=== PATIENT | male | born 1995 | race Caucasian/White ===

== ENCOUNTER 2017-11-20 21:31 | Emergency (ER) | payer BC, OTHER ==
[2017-11-20 21:59] VITALS: BP 134/66
--- NOTE | 2017-11-20 22:02 | UC ---
Shoulder Pain HPI - HPI Summary HPI Summary: 22 yo male with left shoulder pain which started while doing presses at gym now pain worse with some swelling hurts to abduct - History of Current Complaint Chief Complaint: UCUpperExtremity Stated Complaint: LEFT SHOULDER INJ Time Seen by Provider: 11/20/17 22:01 Hx Obtained From: Patient Onset/Duration: Sudden Onset Timing: Constant Severity Initially: Mild Severity Currently: Mild Location Of Pain: Is Discrete @ Pain Intensity: 2 Pain Scale Used: 0-10 Numeric Character: Dull, Aching Aggravating Factor(s): Movement Alleviating Factor(s): Rest Associated Signs And Symptoms: Positive: Swelling Torso: 1 - tender/swollen - Allergies/Home Medications Allergies/Adverse Reactions: Allergies Allergy/AdvReac Type Severity Reaction Status Date / Time No Known Allergies Allergy Verified 11/20/17 21:59 PMH/Surg Hx/FS Hx/Imm Hx Previously Healthy: Yes - Surgical History Surgical History: None - Family History Known Family History: Positive: Hypertension - Social History Alcohol Use: None Substance Use Type: None Smoking Status (MU): Never Smoked Tobacco Review of Systems Constitutional: Negative Skin: Negative Eyes: Negative ENT: Negative Respiratory: Negative Cardiovascular: Negative Gastrointestinal: Negative Genitourinary: Negative Motor: Negative Neurovascular: Negative Musculoskeletal: Arthralgia, Myalgia Neurological: Negative Psychological: Negative Is Patient Immunocompromised?: No All Other Systems Reviewed And Are Negative: Yes Physical Exam Triage Information Reviewed: Yes Appearance: Well-Appearing, No Pain Distress, Well-Nourished Vital Signs: Initial Vital Signs Temp 98.6 F 11/20/17 21:50 Pulse 74 11/20/17 21:50 Resp 16 11/20/17 21:50 BP 134/66 11/20/17 21:50 Pulse Ox 100 11/20/17 21:50 Vital Signs Reviewed: Yes Eyes: Positive: Conjunctiva Clear ENT: Negative: Hearing grossly normal, Nasal congestion, Nasal drainage, Trismus , Muffled voice, Sinus tenderness, Uvula midline Neck: Positive: Supple, Nontender Respiratory: Positive: Lungs clear, Normal breath sounds, No respiratory distress, No accessory muscle use Cardiovascular: Positive: RRR, No Murmur Musculoskeletal: Positive: ROM Limited @, Edema @ - see image Neurological: Positive: Alert Psychological Exam: Normal Skin Exam: Normal Diagnostics - Radiology No standard instances Xray Interpretation: No Acute Changes Radiology Interpretation Completed By: ED Physician Shoulder Course/Dx - Differential Dx/Diagnosis Provider Diagnoses: left shoulder ac joint strain Discharge - Discharge Plan Condition: Stable Disposition: HOME Patient Education Materials: Shoulder Sprain (ED) Referrals: Arturo Rincon MD [Medical Doctor] - 1 Week (if not better) Additional Instructions: rest ice advil or aleve
--- NOTE | 2017-11-21 07:50 | RAD ---
HISTORY: Left shoulder injury COMPARISONS: None VIEWS: 4, Frontal internal rotation, external rotation, outlet, and axillary views of the left shoulder FINDINGS: BONE DENSITY: Normal. BONES: There is no displaced fracture. JOINTS: There is no arthropathy. ALIGNMENT: There is no dislocation. SOFT TISSUES: Unremarkable. OTHER FINDINGS: None. IMPRESSION: NO ACUTE OSSEOUS INJURY. IF SYMPTOMS PERSIST, RECOMMEND REPEAT IMAGING.
== END 2017-11-20 22:44 | disposition home or self-care (01) ==
LOC: UCCORT 21:31
DX: S46.812A Strain of other muscles, fascia and tendons at shoulder and upper arm level, left arm, initial encounter (principal); X50.3XXA Overexertion from repetitive movements, initial encounter; Y93.B1 Activity, exercise machines primarily for muscle strengthening; Y92.9 Unspecified place or not applicable
CPT/HCPCS: 99201; G0463

== ENCOUNTER 2018-03-16 23:35 | Emergency (ER) | payer BC ==
[2018-03-17] MEDS ORDERED: Albuterol/Ipratropium NEB.SOL* Albuterol 2.5 MG/Ipratropium 0.5 MG 3 ML INH ONE (00:59)
[2018-03-17] MEDS ORDERED: Ibuprofen TAB* 800 MG PO ONE (00:59)
--- NOTE | 2018-03-17 01:37 | ED ---
Kaylyn Dubois Rebecca, scribed for Nick Park MD on 03/17/18 at 0055 . Complex/Multi-Sys Presentation - HPI Summary HPI Summary: Pt is a 22 y/o M who presents to ED c/o cough with myalgias since yesterday morning. On triage, pt reported that he was having no pain. Sx aggravated and alleviated by nothing. Additionally notes XIE and intermittent subjective fever. No PMHx asthma. SHx no smoking. - History Of Current Complaint Chief Complaint: EDGeneral Time Seen by Provider: 03/17/18 00:42 Hx Obtained From: Patient Onset/Duration: Lasting Days - Since yesterday morning, Still Present Severity Currently: None Location: Negative Aggravating Factor(s): Nothing Alleviating Factor(s): Nothing Associated Signs And Symptoms: Positive: Cough, Fever, Other - Myalgias - Allergies/Home Medications Allergies/Adverse Reactions: Allergies Allergy/AdvReac Type Severity Reaction Status Date / Time No Known Allergies Allergy Verified 11/20/17 21:59 PMH/Surg Hx/FS Hx/Imm Hx Endocrine/Hematology History: Denies: Hx Diabetes Respiratory History: Denies: Hx Asthma Infectious Disease History: No Infectious Disease History: Denies: Traveled Outside the [place] in Last 30 Days - Family History Known Family History: Positive: Hypertension - Social History Alcohol Use: None Substance Use Type: Reports: None Smoking Status (MU): Never Smoked Tobacco Review of Systems Positive: Fever Positive: Cough Positive: Myalgia Positive: Headache All Other Systems Reviewed And Are Negative: Yes Physical Exam - Summary Physical Exam Summary: VITAL SIGNS: Reviewed. GENERAL: ~Patient is a well-developed and nourished male who is lying comfortable in the stretcher. Patient is not in any acute respiratory distress. HEAD AND FACE: No signs of trauma. No ecchymosis, hematomas or skull depressions. No sinus tenderness. EYES: PERRLA, EOMI x 2, No injected conjunctiva, no nystagmus. EARS: Hearing grossly intact. Ear canals and tympanic membranes are within normal limits. MOUTH: Oropharynx within normal limits. NECK: Supple, trachea is midline, no adenopathy, no JVD, no carotid bruit, no c- spine tenderness, neck with full ROM. CHEST: Symmetric, no tenderness at palpation LUNGS: Clear to auscultation bilaterally. No wheezing or crackles. CVS: Regular rate and rhythm, S1 and S2 present, no murmurs or gallops appreciated. ABDOMEN: Soft, non-tender. No signs of distention. No rebound no guarding, and no masses palpated. Bowel sounds are normal. EXTREMITIES: FROM in all major joints, no edema, no cyanosis or clubbing. NEURO: Alert and oriented x 3. No acute neurological deficits. Speech is normal and follows commands. SKIN: Dry and warm Triage Information Reviewed: Yes Vital Signs On Initial Exam: Initial Vitals Temp Pulse Resp BP Pulse Ox 99.5 F 74 20 127/66 100 03/16/18 23:47 03/16/18 23:47 03/16/18 23:47 03/16/18 23:47 03/16/18 23:47 Vital Signs Reviewed: Yes Diagnostics - Vital Signs Vital Signs Temp Pulse Resp BP Pulse Ox 03/16/18 23:47 99.5 F 74 20 127/66 100 - Laboratory Lab Statement: Any lab studies that have been ordered have been reviewed, and results considered in the medical decision making process. - Radiology CXR Xray Interpretation: No Acute Changes - No acute process. Pending official report. Radiology Interpretation Completed By: ED Physician Re-Evaluation - Re-Evaluation First Eval Re-Evaluation Time: 01:32 Change: Improved Comment: Discussed results. Pt feels better and wants to go home. Complex Multi-Symp Course/Dx Assessment/Plan: Pt is a 22 y/o M who presents to ED c/o cough with myalgias, XIE , and intermittent subjective fever since yesterday morning. On triage, pt reported that he was having no pain. Sx aggravated and alleviated by nothing.No PMHx asthma. SHx no smoking. CXR reveals no acute findings. In the ED course, pt received ventolin and duoneb Tx and motrin which improved sx. On re- evaluation, the pt feels better and would like to go home. Pt will be D/C to home with Dx of viral syndrome with Rx for motrin. He understands and agrees. - Diagnoses Provider Diagnoses: Viral syndrome Discharge - Sign-Out/Discharge Documenting (check all that apply): Discharge/Admit/Transfer - Discharge - Discharge Plan Condition: Stable Disposition: HOME Prescriptions: Ibuprofen TAB* [Motrin TAB* 800 MG] 800 mg PO Q6H PRN #30 tab PRN Reason: Pain Or Temperature Patient Education Materials: Viral Syndrome (ED) Referrals: No Primary Care Phys,NOPCP [Primary Care Provider] - [facility] [place] [place] [facility] [Outside] - 3 Days Additional Instructions: RETURN TO ED FOR ANY NEW OR WORSENING SYMPTOMS. The documentation as recorded by the Kaylyn ureña Rebecca accurately reflects the service I personally performed and the decisions made by , Nick Park MD.
[2018-03-17] MEDS ORDERED: Albuterol HFA INHALER* 8 gm MDI INH ONE (01:46)
[2018-03-17] MEDS ORDERED: Albuterol HFA INHALER* 8 gm MDI INH SCH (02:00)
[2018-03-17 02:01] VITALS: BP 119/69
--- NOTE | 2018-03-17 08:10 | RAD ---
INDICATION: Cough COMPARISON: August 08, 2010 TECHNIQUE: PA and lateral dual-energy views were obtained. FINDINGS: Bones/Soft Tissues: There are no acute bony findings. Cardiomediastinal: The cardiomediastinal silhouette is normal. Lungs: There are no infiltrates. Pleura: There are no pleural effusions. Other: None IMPRESSION: NORMAL CHEST.
== END 2018-03-17 02:00 | disposition home or self-care (01) ==
LOC: ED 23:35
DX: B34.9 Viral infection, unspecified (principal)
CPT/HCPCS: 71045; 99282; A9270-GY

== ENCOUNTER 2018-03-26 22:00 | Emergency (ER) | payer BC ==
[2018-03-26 23:32] LABS: ABS Basophils 0 10^3/ul (0-0.2); ABS Eosinophils 0.1 10^3/ul (0-0.6); ABS Monocytes 0.7 10^3/ul (0-0.8); ABS Neutrophils 10.7 10^3/ul (1.5-7.7); ABS Nucleated RBC 0 10^3/ul; Eosinophil % 0.9 % (0-6); Hematocrit 44 % (42-52); Hemoglobin 15.5 g/dl (14.0-18.0); Lymphocyte % 7.8 % (25-47); Mean Corpuscular HGB Conc 35 g/dl (31-36); Mean Corpuscular Hemoglobin 32 pg (27-31); Mean Corpuscular Volume 92 fL (80-94); Nucleated Red Blood Cells % 0.1; Platelet Count 207 10^3/ul (150-450); Red Blood Count 4.82 10^6/ul (4.0-5.4); Red Cell Distribution Width 12 % (10.5-15); White Blood Count 12.5 10^3/ul (3.5-10.8)
[2018-03-26 23:49] LABS: EGFR Non-African American 84.9 (>60)
[2018-03-27] MEDS ORDERED: Azithromycin TAB* 250 MG PO ONE (00:08)
--- NOTE | 2018-03-27 00:09 | ED ---
HPI Febrile Illness - HPI Summary HPI Summary: Complains of fever up to 100.4, chills, weakness, productive cough, persistent nausea with vomiting 1 over the past 2 weeks. Symptoms seem to be improving over the past couple days with sudden onset again today. Denies nasal discharge , ear pain, sore throat, XIE, CP, SOB, abdominal pain, diarrhea, change in urine. - History of Current Complaint Chief Complaint: EDWeakness Time Seen by Provider: 03/26/18 22:48 Hx Obtained From: Patient, Family/Major Case Detective Onset/Duration: Started Weeks Ago Timing: Intermittent Initial Severity: Mild Current Severity: Moderate Pain Intensity: 6 Pain Scale Used: 0-10 Numeric Associated Signs and Symptoms: Cough, Nausea, Vomiting, Weakness - Allergy/Home Medications Allergies/Adverse Reactions: Allergies Allergy/AdvReac Type Severity Reaction Status Date / Time No Known Allergies Allergy Verified 03/26/18 22:06 PMH/Surg Hx/FS Hx/Imm Hx Endocrine/Hematology History: Denies: Hx Diabetes Respiratory History: Denies: Hx Asthma, Hx Chronic Obstructive Pulmonary Disease (COPD) Infectious Disease History: No Infectious Disease History: Denies: Traveled Outside the [place] in Last 30 Days - Family History Known Family History: Positive: Hypertension - Social History Alcohol Use: None Substance Use Type: Reports: None Smoking Status (MU): Never Smoked Tobacco Review of Systems Positive: Fever Eyes: Negative ENT: Negative Cardiovascular: Negative Positive: Cough Positive: Vomiting, Nausea Genitourinary: Negative Musculoskeletal: Negative Skin: Negative Positive: Weakness Psychological: Normal All Other Systems Reviewed And Are Negative: Yes Physical Exam Triage Information Reviewed: Yes Vital Signs On Initial Exam: Initial Vitals Temp Pulse Resp BP Pulse Ox 99.5 F 91 16 121/78 98 03/26/18 22:02 03/26/18 22:02 03/26/18 22:02 03/26/18 22:02 03/26/18 22:02 Vital Signs Reviewed: Yes Appearance: Positive: Well-Appearing Skin: Positive: Warm Head/Face: Positive: Normal Head/Face Inspection Eyes: Positive: Normal ENT: Positive: Normal ENT inspection Neck: Positive: Supple Respiratory/Lung Sounds: Positive: Clear to Auscultation Cardiovascular: Positive: Normal Abdomen Description: Positive: Nontender Musculoskeletal: Positive: Normal Neurological: Positive: Normal Psychiatric: Positive: Normal AVPU Assessment: Alert - Geo Coma Scale Best Eye Response: 4 - Spontaneous Best Motor Response: 6 - Obeys Commands Best Verbal Response: 5 - Oriented Coma Scale Total: 15 Diagnostics - Vital Signs Vital Signs Temp Pulse Resp BP Pulse Ox 03/26/18 22:02 99.5 F 91 16 121/78 98 - Laboratory Lab Results: Lab Results 03/26/18 03/26/18 03/26/18 Range/Units 23:24 23:24 23:24 WBC 12.5 H (3.5-10.8) 10^3/ul RBC 4.82 (4.0-5.4) 10^6/ul Hgb 15.5 (14.0-18.0) g/dl Hct 44 (42-52) % MCV 92 (80-94) fL MCH 32 H (27-31) pg MCHC 35 (31-36) g/dl RDW 12 (10.5-15) % Plt Count 207 (150-450) 10^3/ul MPV 8.0 (7.4-10.4) um3 Neut % (Auto) 85.1 H (38-83) % Lymph % (Auto) 7.8 L (25-47) % Baker % (Auto) 5.9 (0-7) % Eos % (Auto) 0.9 (0-6) % Baso % (Auto) 0.3 (0-2) % Absolute Neuts (auto) 10.7 H (1.5-7.7) 10^3/ul Absolute Lymphs (auto) 1.0 (1.0-4.8) 10^3/ul Absolute Monos (auto) 0.7 (0-0.8) 10^3/ul Absolute Eos (auto) 0.1 (0-0.6) 10^3/ul Absolute Basos (auto) 0 (0-0.2) 10^3/ul Absolute Nucleated RBC 0 10^3/ul Nucleated RBC % 0.1 Sodium 136 L (139-145) mmol/L Potassium 4.2 (3.5-5.0) mmol/L Chloride 102 (101-111) mmol/L Carbon Dioxide 28 (22-32) mmol/L Anion Gap 6 (2-11) mmol/L BUN 15 (6-24) mg/dL Creatinine 1.07 (0.67-1.17) mg/dL Est GFR ( Amer) 109.2 (>60) Est GFR (Non-Af Amer) 84.9 (>60) BUN/Creatinine Ratio 14.0 (8-20) Glucose 102 H (70-100) mg/dL Lactic Acid 0.5 (0.5-2.0) mmol/L Calcium 9.2 (8.6-10.3) mg/dL Total Bilirubin 1.00 (0.2-1.0) mg/dL AST 22 (13-39) U/L ALT 17 (7-52) U/L Alkaline Phosphatase 82 (34-104) U/L C-Reactive Protein 10.14 H (< 5.00) mg/L Total Protein 7.1 (6.4-8.9) g/dL Albumin 4.3 (3.2-5.2) g/dL Globulin 2.8 (2-4) g/dL Albumin/Globulin Ratio 1.5 (1-3) Monoscreen Negative (Negative) Group A Strep Rapid (Negative) 03/26/18 Range/Units 23:24 WBC (3.5-10.8) 10^3/ul RBC (4.0-5.4) 10^6/ul Hgb (14.0-18.0) g/dl Hct (42-52) % MCV (80-94) fL MCH (27-31) pg MCHC (31-36) g/dl RDW (10.5-15) % Plt Count (150-450) 10^3/ul MPV (7.4-10.4) um3 Neut % (Auto) (38-83) % Lymph % (Auto) (25-47) % Baker % (Auto) (0-7) % Eos % (Auto) (0-6) % Baso % (Auto) (0-2) % Absolute Neuts (auto) (1.5-7.7) 10^3/ul Absolute Lymphs (auto) (1.0-4.8) 10^3/ul Absolute Monos (auto) (0-0.8) 10^3/ul Absolute Eos (auto) (0-0.6) 10^3/ul Absolute Basos (auto) (0-0.2) 10^3/ul Absolute Nucleated RBC 10^3/ul Nucleated RBC % Sodium (139-145) mmol/L Potassium (3.5-5.0) mmol/L Chloride (101-111) mmol/L Carbon Dioxide (22-32) mmol/L Anion Gap (2-11) mmol/L BUN (6-24) mg/dL Creatinine (0.67-1.17) mg/dL Est GFR ( Amer) (>60) Est GFR (Non-Af Amer) (>60) BUN/Creatinine Ratio (8-20) Glucose (70-100) mg/dL Lactic Acid (0.5-2.0) mmol/L Calcium (8.6-10.3) mg/dL Total Bilirubin (0.2-1.0) mg/dL AST (13-39) U/L ALT (7-52) U/L Alkaline Phosphatase (34-104) U/L C-Reactive Protein (< 5.00) mg/L Total Protein (6.4-8.9) g/dL Albumin (3.2-5.2) g/dL Globulin (2-4) g/dL Albumin/Globulin Ratio (1-3) Monoscreen (Negative) Group A Strep Rapid Negative (Negative) Result Diagrams: 03/26/18 23:24 03/26/18 23:24 Lab Statement: Any lab studies that have been ordered have been reviewed, and results considered in the medical decision making process. - Radiology cxr Xray Interpretation: No Acute Changes Radiology Interpretation Completed By: ED Physician Course/Dx - Course Course Of Treatment: Complains of fever up to 100.4, chills, weakness, productive cough, persistent nausea with vomiting 1 over the past 2 weeks. Symptoms seem to be improving over the past couple days with sudden onset again today. Denies nasal discharge, ear pain, sore throat, XIE, CP, SOB, abdominal pain, diarrhea, change in urine. Physical exam unremarkable. Vital signs within normal limits and stable. Likely viral disease, but due to length of symptoms will attempt trial of antibiotics. - Diagnoses Provider Diagnoses: Cough, Fever Discharge - Sign-Out/Discharge Documenting (check all that apply): Discharge/Admit/Transfer - Discharge Plan Condition: Stable Disposition: HOME Patient Education Materials: Fever in Adults (ED) Referrals: No Primary Care Phys,NOPCP [Primary Care Provider] - [facility] [Outside] Additional Instructions: Take antibiotics as directed. Follow-up with primary care. Return to the ED for any new or worsening symptoms - Billing Disposition and Condition Condition: STABLE Disposition: Home
[2018-03-27] MEDS ORDERED: Ondansetron ODT TAB* 4 MG PO ONE (00:19)
[2018-03-27] MEDS ORDERED: Ondansetron ODT TAB* 4 MG ONE (00:21)
[2018-03-27 00:23] VITALS: BP 113/65
--- NOTE | 2018-03-27 07:51 | RAD ---
HISTORY: Fever, cough COMPARISONS: March 17, 2018 VIEWS: 4: Frontal dual-energy and lateral views of the chest. FINDINGS: CARDIOMEDIASTINAL SILHOUETTE: The cardiomediastinal silhouette is normal. KALANI: The kalani are normal. PLEURA: The costophrenic angles are sharp. No pleural abnormalities are noted. LUNG PARENCHYMA: The lungs are clear. ABDOMEN: The upper abdomen is clear. There is no subphrenic gas. BONES AND SOFT TISSUES: No bone or soft tissue abnormalities are noted. OTHER: None. IMPRESSION: NO ACTIVE CARDIOPULMONARY DISEASE.
== END 2018-03-27 00:23 | disposition home or self-care (01) ==
LOC: ED 22:00
DX: R05 Cough (principal); R50.9 Fever, unspecified; R11.2 Nausea with vomiting, unspecified; R53.1 Weakness
CPT/HCPCS: 36415; 71046; 80053; 83605; 85025; 86140; 86308; 87651; 99283; A9270-GY

== ENCOUNTER 2018-10-15 08:25 | Emergency (ER) | payer SELFPAY ==
[2018-10-15 08:37] VITALS: BP 144/62
[2018-10-15] MEDS ORDERED: predniSONE TAB* 10 MG PO ONE (09:07)
--- NOTE | 2018-10-15 09:23 | ED ---
Allergic Reaction/Systemic - HPI Summary HPI Summary: 22 yo W male p/w B/L forearm itchy rash after being exposed to a new chemical at work called Drawsol oil, used as a steel lubricant. [Apparently, per internet search, "Drawsol is a synthetic metal forming lubricant that eliminates corrosion problems associated with chorine-based lubes. Its unique drawing formula minimizes the formation of smoke]. States he has been exposed to it about a week ago but the rash worsened in the last 3-4 days, so itchy that it keeps him up at night - History of Current Complaint Chief Complaint: UCRash Time Seen by Provider: 10/15/18 08:45 Hx Obtained From: Patient Onset/Duration: Started days ago Timing: Constant, Lasting Days Severity Initially: Moderate Severity Currently: Severe Pain Intensity: 10 - Allergies/Home Medications Allergies/Adverse Reactions: Allergies Allergy/AdvReac Type Severity Reaction Status Date / Time No Known Allergies Allergy Verified 10/15/18 08:37 Home Medications: Home Medications Hydrocortisone 0.5% CM(NF) [Hydrocortisone 0.5% CREAM(NF)] 1 applic .SEE ORDER 10/15/18 [History] diphenhydrAMINE HCl [Benadryl Allergy 25 MG CAP] 25 mg PO 10/15/18 [History] PMH/Surg Hx/FS Hx/Imm Hx Previously Healthy: Yes Endocrine/Hematology History: Denies: Hx Diabetes Respiratory History: Denies: Hx Asthma, Hx Chronic Obstructive Pulmonary Disease (COPD) Infectious Disease History: No Infectious Disease History: Denies: Traveled Outside the [place] in Last 30 Days - Family History Known Family History: Positive: Hypertension - Social History Alcohol Use: None Substance Use Type: Reports: None Smoking Status (MU): Never Smoked Tobacco Type: Smokeless Tobacco Review of Systems Constitutional: Negative Eyes: Negative ENT: Negative Cardiovascular: Negative Respiratory: Negative Gastrointestinal: Negative Genitourinary: Negative Musculoskeletal: Negative Positive: Rash Neurological: Negative Psychological: Normal All Other Systems Reviewed And Are Negative: Yes Physical Exam - Summary Physical Exam Summary: Vital Signs Reviewed: Yes Skin: Positive: Warmm raised, pruritic erythematous 6-7mm skin rash on B/L forearms and mildly raised confluent rash on B/L calves Head/Face: Positive: Normal Head/Face Inspection Eyes: Positive: Normal ENT: Positive: Normal ENT inspection Neck: Positive: Supple Respiratory/Lung Sounds: Positive: Clear to Auscultation Cardiovascular: Positive: Normal, RRR, S1, S2 Abdomen Description: Positive: Nontender Musculoskeletal: Positive: Normal Neurological: Positive: Normal Psychiatric: Positive: Normal, Affect/Mood Appropriate Triage Information Reviewed: Yes Vital Signs On Initial Exam: Initial Vitals Temp Pulse Resp BP Pulse Ox 36.2 C 58 18 144/62 98 10/15/18 08:32 10/15/18 08:32 10/15/18 08:32 10/15/18 08:32 10/15/18 08:32 Vital Signs Reviewed: Yes Diagnostics - Vital Signs Vital Signs Temp Pulse Resp BP Pulse Ox 10/15/18 08:32 36.2 C 58 18 144/62 98 - Laboratory Lab Statement: Any lab studies that have been ordered have been reviewed, and results considered in the medical decision making process. Allergic Reaction Course/Dx - Course Assessment/Plan: Allergic rash - exposed to DRAWSOL OIL. Drawsol is a synthetic metal forming lubricant that eliminates corrosion problems associated with chorine-based lubes. PT IS ALLERGIC TO Chlorine which Drawsol contains. Advised to no longer work with that chemical indefinitely- wrote work note advising to assign to another work station indefinitely. Prednisone 10mg po x 1 in UC today and to continue meds- Medrol dose ed tommorrow - Diagnoses Provider Diagnoses: Allergic reaction to chemical substance, Rash Discharge - Sign-Out/Discharge Documenting (check all that apply): Patient Departure All imaging exams completed and their final reports reviewed: Yes - Discharge Plan Condition: Stable Disposition: HOME Prescriptions: Betamethasone Aleah 0.1% CRM(NF) [Valisone 0.1% CM(NF)] 1 applic TOPICAL BID PRN 7 Days #1 tube PRN Reason: Pruritis methylPREDNISolone [Medrol] 4 mg PO .SEE ED INSTRUCTION 6 Days #1 [email or web address] Patient Education Materials: Contact Dermatitis (ED), Acute Rash (ED) Forms: *Work Release - Billing Disposition and Condition Condition: STABLE Disposition: Home
== END 2018-10-15 09:23 | disposition home or self-care (01) ==
LOC: UCEAST 08:25
DX: T78.49XA Other allergy, initial encounter (principal); X58.XXXA Exposure to other specified factors, initial encounter; Y92.9 Unspecified place or not applicable
CPT/HCPCS: 99212; G0463; J7512

== ENCOUNTER 2019-05-23 16:50 | Emergency (ER) | payer OTHER ==
[2019-05-23 16:59] VITALS: BP 112/45
[2019-05-23] MEDS ORDERED: Lidocaine 2% PF * 5 ML VIAL INJ ONE (18:02)
--- NOTE | 2019-05-23 18:20 | UC ---
Upper Extremity HPI - HPI Summary HPI Summary: 23 year old male, up to date on tetanus, presents after punching stove top glass , laceration to right 5th finger, + bleeding, controlled. Glass broke, occurred around 5PM. Bleeding cntrolled, no numbness, tingling, + pain - History of Current Complaint Chief Complaint: UCLaceration Stated Complaint: FINGER LACERATION Time Seen by Provider: 05/23/19 17:53 Hx Obtained From: Patient, Family/Foreman Or Supervisor And Operator - mother, girlfriend ?: No Onset/Duration: Sudden Onset Severity Currently: None Pain Intensity: 0 Pain Scale Used: 0-10 Numeric Location Of Pain: Is Discrete @ - right 5th finger Aggravating Factor(s): Movement, Lifting Alleviating Factor(s): Rest Associated Signs And Symptoms: Negative: Negative, Swelling, Redness, Bruising, Fever, Weakness, Numbness/Tingling - Allergies/Home Medications Allergies/Adverse Reactions: Allergies Allergy/AdvReac Type Severity Reaction Status Date / Time No Known Allergies Allergy Verified 10/15/18 08:37 Home Medications: Home Medications Aspirin/Acetaminophen/Caffeine [Excedrin Migraine Geltab] 05/23/19 [History] PMH/Surg Hx/FS Hx/Imm Hx Previously Healthy: Yes - Surgical History Surgical History: None - Family History Known Family History: Positive: Hypertension - Social History Alcohol Use: None Substance Use Type: None Smoking Status (MU): Never Smoked Tobacco Type: Smokeless Tobacco Review of Systems All Other Systems Reviewed And Are Negative: Yes Skin: Positive: Other - laceration 5th finger R Musculoskeletal: Positive: Arthralgia, Decreased ROM, Edema, Myalgia Neurological: Positive: Negative Is Patient Immunocompromised?: No Physical Exam Triage Information Reviewed: Yes Appearance: Well-Appearing, No Pain Distress, Well-Nourished Vital Signs: Initial Vital Signs Temp 99.9 F 05/23/19 16:54 Pulse 73 05/23/19 16:54 Resp 16 05/23/19 16:54 BP 112/45 05/23/19 16:54 Pulse Ox 100 05/23/19 16:54 Vital Signs Reviewed: Yes Eyes: Positive: Conjunctiva Clear ENT: Positive: Hearing grossly normal Skin: Positive: Other - 2cm laceration to PIP 5th finger, RIght hand. Bleeding controlled, SITLT Procedures - Laceration/Wound Repair 2 Location: upper extremity - 5th finger R Description: Irregular Anesthesia: Local, 2.0%, Lido Length, Depth and Shape: avulsion ~ 2cm in length, 4mm depth, 2mm width Betadine Prep?: No - chlorhexadine Irrigated w/ Saline (ccs): 100 Laceration/Wound Explored: clean Closure: Single Layer Debridement: minimal Suture Type: Nylon Number of Sutures: 3 Layer Closure?: Yes Sterile Dressing Applied?: No Upper Extremity Course/Dx - Course Course Of Treatment: Right finger laceration - Keep dressing on for 24 hours, change with xeroform for next change, then with non-stick dressing and coban. - keep area covered until sutures removed - Do not soak area, OK to wash after 24 hours - Return with increased pain, bleeding, decreased movement, drainage or go to ER Return or follow up with primary physician within 7 days for suture removal - Differential Dx/Diagnosis Differential Diagnosis/HQI/PQRI: Strain, Sprain Provider Diagnosis: Laceration of finger Discharge - Sign-Out/Discharge Documenting (check all that apply): Patient Departure All imaging exams completed and their final reports reviewed: Yes - Discharge Plan Condition: Good Disposition: HOME Patient Education Materials: Care For Your Stitches (ED), Finger Laceration (ED ) Referrals: No Primary Care Phys,NOPCP [Primary Care Provider] - [facility] [Outside] Additional Instructions: - Keep dressing on for 24 hours, change with xeroform for next change, then with non-stick dressing and coban. - keep area covered until sutures removed - Do not soak area, OK to wash after 24 hours - Return with increased pain, bleeding, decreased movement, drainage or go to ER Return or follow up with primary physician within 7 days for suture removal - Billing Disposition and Condition Condition: GOOD Disposition: Home
== END 2019-05-23 18:45 | disposition home or self-care (01) ==
LOC: UCEAST 16:50
DX: S61.216A Laceration without foreign body of right little finger without damage to nail, initial encounter (principal); W22.8XXA Striking against or struck by other objects, initial encounter; Y92.010 Kitchen of single-family (private) house as the place of occurrence of the external cause
CPT/HCPCS: 12001; 99211; G0463

== ENCOUNTER 2019-05-30 12:13 | Emergency (ER) | payer OTHER ==
[2019-05-30 12:25] VITALS: BP 109/59
--- NOTE | 2019-05-30 12:28 | UC ---
Skin Complaint HPI - HPI Summary HPI Summary: 23 yo female presents for suture removal right 5th digit. 3 sutures placed on 05/23. Has had no drainage, fevers, pain, or decreased ROM - History of Current Complaint Chief Complaint: UCLaceration Time Seen by Provider: 05/30/19 12:28 Stated Complaint: SUTURE REMOVAL Hx Obtained From: Patient Onset/Duration: Sudden Onset Onset Severity: Mild Current Severity: None Pain Intensity: 0 - Allergy/Home Medications Allergies/Adverse Reactions: Allergies Allergy/AdvReac Type Severity Reaction Status Date / Time chlorine Allergy Hives Uncoded 05/30/19 12:25 PMH/Surg Hx/FS Hx/Imm Hx - Additional Past Medical History Additional PMH: None - Surgical History Surgical History: None - Family History Known Family History: Positive: Hypertension - Social History Lives: With Family Alcohol Use: None Substance Use Type: None Smoking Status (MU): Never Smoked Tobacco Type: Smokeless Tobacco Review of Systems All Other Systems Reviewed And Are Negative: Yes Constitutional: Positive: Negative Skin: Positive: Other - Laceration right 5th digit Respiratory: Positive: Negative Cardiovascular: Positive: Negative Neurovascular: Positive: Negative Musculoskeletal: Positive: Negative Neurological: Positive: Negative Physical Exam - Summary Physical Exam Summary: GENERAL: NAD. WDWN. No pain distress. SKIN: RIGHT 5th digit [address] Well healed. No erythema, edema, drainage. CHEST: No accessory muscle use. Breathing comfortably and in no distress. CV: Pulses intact. Cap refill <2seconds MSK: FROM right 5th digit MCP, PIP, and DIP NEURO: Alert. PSYCH: Age appropriate behavior. Triage Information Reviewed: Yes Vital Signs: Initial Vital Signs Temp 98.8 F 05/30/19 12:23 Pulse 70 05/30/19 12:23 Resp 16 05/30/19 12:23 BP 109/59 05/30/19 12:23 Pulse Ox 100 05/30/19 12:23 Vital Signs Reviewed: Yes Course/Dx - Course Course Of Treatment: 3 sutures removed without difficulty - Diagnoses Provider Diagnosis: Visit for suture removal Discharge - Sign-Out/Discharge Documenting (check all that apply): Patient Departure All imaging exams completed and their final reports reviewed: No Studies - Discharge Plan Condition: Stable Disposition: HOME Patient Education Materials: Stitches Removal (ED) Referrals: No Primary Care Phys,NOPCP [Primary Care Provider] - Additional Instructions: If you develop a fever, shortness of breath, chest pain, new or worsening symptoms - please call your PCP or go to the ED immediately. - Billing Disposition and Condition Condition: STABLE Disposition: Home
== END 2019-05-30 12:34 | disposition home or self-care (01) ==
LOC: UCEAST 12:13
DX: S61.216D Laceration without foreign body of right little finger without damage to nail, subsequent encounter (principal); X58.XXXD Exposure to other specified factors, subsequent encounter

== ENCOUNTER 2019-06-20 16:11 | Emergency (ER) | payer OTHER ==
[2019-06-20 17:06] VITALS: BP 112/66
--- NOTE | 2019-06-20 17:49 | UC ---
Laceration HPI - HPI Summary HPI Summary: 23 yo male s/p banding strap laceration left forearm hours ago at work Td up to date pt right handed - History Of Current Complaint Chief Complaint: UCLaceration Stated Complaint: LEFT ARM LAC Time Seen by Provider: 06/20/19 17:46 Hx Obtained From: Patient Laceration Location: Arm - volar aspect of left fore arm Onset/Duration: Sudden Onset Severity: Mild Pain Intensity: 1 Pain Scale Used: 0-10 Numeric Aggravating Factors: Nothing Full Body (No Head): 1 - lac - Allergies/Home Medications Allergies/Adverse Reactions: Allergies Allergy/AdvReac Type Severity Reaction Status Date / Time chlorine Allergy Hives Uncoded 06/20/19 17:05 Home Medications: Home Medications NK [No Home Medications Reported] 06/20/19 [History Confirmed 06/20/19] PMH/Surg Hx/FS Hx/Imm Hx Previously Healthy: Yes - Surgical History Surgical History: None - Family History Known Family History: Positive: Hypertension, Non-Contributory - Social History Alcohol Use: Rare Substance Use Type: None Smoking Status (MU): Unknown if Ever Smoked Type: Smokeless Tobacco Review of Systems All Other Systems Reviewed And Are Negative: Yes Constitutional: Positive: Negative Skin: Positive: Negative Eyes: Positive: Negative ENT: Positive: Negative Respiratory: Positive: Negative Cardiovascular: Positive: Negative Gastrointestinal: Positive: Negative Genitourinary: Positive: Negative Motor: Positive: Negative Neurovascular: Positive: Negative Musculoskeletal: Positive: Negative Neurological: Positive: Negative Psychological: Positive: Negative Physical Exam Triage Information Reviewed: Yes Appearance: Well-Appearing, No Pain Distress, Well-Nourished Vital Signs: Initial Vital Signs Temp 99.0 F 06/20/19 17:02 Pulse 73 06/20/19 17:02 Resp 18 06/20/19 17:02 BP 112/66 06/20/19 17:02 Pulse Ox 99 06/20/19 17:02 Vital Signs Reviewed: Yes Eyes: Positive: Conjunctiva Clear ENT: Negative: Hearing grossly normal, Nasal congestion, Nasal drainage, Tonsillar exudate, Trismus, Uvula midline Neck: Positive: Supple, Nontender, No Lymphadenopathy Respiratory: Positive: Lungs clear, Normal breath sounds, No respiratory distress Cardiovascular: Positive: RRR, No Murmur Musculoskeletal: Positive: ROM Intact, No Edema Neurological: Positive: Alert Psychological Exam: Normal Skin Exam: Other - lac as noted Procedures - Laceration/Wound Repair 1 Location: Other - left forearm Length, Depth and Shape: 3 cm long, 3 mm wide, 3 mm deep, LINEAR Irrigated w/ Saline (ccs): 250 Laceration/Wound Explored: clean Closure: Multilayer Suture Type: Nylon - 6 5-0, Vicryl - 2 5-0 Number of Sutures: 8 Layer Closure?: Yes Sterile Dressing Applied?: Yes Laceration Course/Dx - Diagnosis Provider Diagnosis: Laceration of left forearm Discharge ED - Sign-Out/Discharge Documenting (check all that apply): Patient Departure All imaging exams completed and their final reports reviewed: No Studies - Discharge Plan Condition: Stable Disposition: HOME Patient Education Materials: Care For Your Stitches (ED) Forms: *Work Release Referrals: No Primary Care Phys,NOPCP [Primary Care Provider] - Additional Instructions: gently clean twice daily with soap and water apply thin film of antibiotic oint dressing return for concerns of infection - Billing Disposition and Condition Condition: STABLE Disposition: Home
[2019-06-20] MEDS ORDERED: Lidocaine 2% w EPI 1:100,000* 20 ML MDV VIAL INJ ONE (17:53)
== END 2019-06-20 18:45 | disposition home or self-care (01) ==
LOC: UCEAST 16:11
DX: S51.812A Laceration without foreign body of left forearm, initial encounter (principal); W26.9XXA Contact with unspecified sharp object(s), initial encounter; Y93.89 Activity, other specified; Y92.89 Other specified places as the place of occurrence of the external cause; Y99.0 Civilian activity done for income or pay
CPT/HCPCS: 12001; 99211; G0463

== ENCOUNTER 2019-06-27 10:18 | Emergency (ER) | payer SELFPAY ==
[2019-06-27 11:06] VITALS: BP 114/64
--- NOTE | 2019-06-27 11:36 | UC ---
HPI Wound/Suture Re-check - HPI Summary HPI Summary: 23 you gentleman presents with family, c/o L forearm redness / irritation last couple days. S/p suture placement 7 days ago (internal and external) s/p laceration sustained at work to L ant forearm. No pdw. Tet utd. Wound hygiene - via soap / water. Has not been covering the wound, minimal to no drainage. - History Of Current Complaint Chief Complaint: UCSkin Stated Complaint: WOUND RECHECK Time Seen by Provider: 06/27/19 11:09 Hx Obtained From: Patient Pain Intensity: 0 - Allergies/Home Medications Allergies/Adverse Reactions: Allergies Allergy/AdvReac Type Severity Reaction Status Date / Time chlorine Allergy Hives Uncoded 06/27/19 11:06 PMH/Surg Hx/FS Hx/Imm Hx Previously Healthy: Yes - Surgical History Surgical History: None - Family History Known Family History: Positive: Hypertension, Non-Contributory - Social History Alcohol Use: Rare Substance Use Type: None Smoking Status (MU): Never Smoked Tobacco Type: Smokeless Tobacco Review of Systems All Other Systems Reviewed And Are Negative: Yes Constitutional: Positive: Negative Skin: Positive: Other - see hpi Eyes: Positive: Negative ENT: Positive: Negative Respiratory: Positive: Negative Cardiovascular: Positive: Negative Gastrointestinal: Positive: Negative Genitourinary: Positive: Negative Motor: Positive: Negative Neurovascular: Positive: Negative Musculoskeletal: Positive: Negative Neurological: Positive: Negative Psychological: Positive: Negative Is Patient Immunocompromised?: No Physical Exam Triage Information Reviewed: Yes Appearance: Well-Appearing, Well-Nourished Vital Signs: Initial Vital Signs Temp 98 F 06/27/19 11:04 Pulse 71 06/27/19 11:04 Resp 18 06/27/19 11:04 BP 114/64 06/27/19 11:04 Pulse Ox 100 06/27/19 11:04 Vital Signs Reviewed: Yes Eye Exam: Normal - grossly normal ENT Exam: Normal - normal Neck exam: Normal - no c/o Respiratory Exam: Normal Cardiovascular Exam: Normal Abdominal Exam: Normal Musculoskeletal Exam: Normal Neurological Exam: Normal - nonfocal Psychological Exam: Normal - conversing easily Skin Exam: Normal - no visible or reported rash L ant forearm with linear lacaration approx 3+ cm, with several SI interrupted sutures in place. There is some redness at the suture sites, mild local edema. Nonfluctuant. Not hot to touch. Course/Dx - Course Course Of Treatment: Reviewed coa / tx plan with pt and family. Wound apparently was quite deep. Will start mupirocin (see avs), if still red tomorrow, will start ceftin. Rx sent for both. Advised to use light breathable cover (ex loose cloth bandaid) d/t pressure / shearing forces. Suspect shearing forces againt clothes is a contributing factor. Reviewed wound care. Suture removal one more week. Questions as posed answered to the best of my ability. - Diagnosis Provider Diagnosis: Visit for wound check Discharge ED - Sign-Out/Discharge Documenting (check all that apply): Patient Departure All imaging exams completed and their final reports reviewed: No Studies - Discharge Plan Condition: Stable Disposition: HOME Prescriptions: ceFUROXime TAB(*) [Ceftin TAB 250 MG(*)] 250 mg PO BID #10 tab Mupirocin 2% OINT* [Bactroban 2 % Oint*] 1 applic TOPICAL BID #1 tube Patient Education Materials: Wound Infection (ED) Referrals: No Primary Care Phys,NOPCP [Primary Care Provider] - Additional Instructions: Mupirocin ointment THIN layer 2x / day for 7 days. Be sure to lightly cover the wound (not air tight), cloth bandaid best. Avoid astringents (switch to white unscented soap, avoid repeated rubbing alcohol hydrogen peroxide, etc) Suture removal - one week. Seek medical attention for worse or new problems in the meantime. - Billing Disposition and Condition Condition: STABLE Disposition: Home
== END 2019-06-27 11:30 | disposition home or self-care (01) ==
LOC: UCEAST 10:18
DX: S51.812D Laceration without foreign body of left forearm, subsequent encounter (principal); W26.9XXD Contact with unspecified sharp object(s), subsequent encounter; Z91.048 Other nonmedicinal substance allergy status
CPT/HCPCS: 99212; G0463

== ENCOUNTER 2019-07-05 16:43 | Emergency (ER) | payer OTHER ==
[2019-07-05 16:52] VITALS: BP 131/71
--- NOTE | 2019-07-05 17:09 | UC ---
HPI Wound/Suture Re-check - HPI Summary HPI Summary: L forearm has small lac and 6 sutures placed on 06/20 w/ 2 dissolvable sutures deep. Had slight infxn and was rx'd antibx po and topical. Here to have them removed. - History Of Current Complaint Chief Complaint: UCSkin Stated Complaint: STITCHES REMOVAL Time Seen by Provider: 07/05/19 16:55 Hx Obtained From: Patient Pain Intensity: 0 Pain Scale Used: 0-10 Numeric - Allergies/Home Medications Allergies/Adverse Reactions: Allergies Allergy/AdvReac Type Severity Reaction Status Date / Time chlorine Allergy Hives Uncoded 07/05/19 16:53 Home Medications: Home Medications NK [No Home Medications Reported] 07/05/19 [History Confirmed 07/05/19] PMH/Surg Hx/FS Hx/Imm Hx Previously Healthy: Yes - Surgical History Surgical History: None - Family History Known Family History: Positive: Hypertension, Non-Contributory - Social History Alcohol Use: Rare Substance Use Type: None Smoking Status (MU): Never Smoked Tobacco Type: Smokeless Tobacco Review of Systems All Other Systems Reviewed And Are Negative: Yes Constitutional: Negative: Fever Skin: Negative: Other Physical Exam Triage Information Reviewed: Yes Appearance: Well-Appearing Vital Signs: Initial Vital Signs Temp 98.2 F 07/05/19 16:49 Pulse 70 07/05/19 16:49 Resp 16 07/05/19 16:49 BP 131/71 07/05/19 16:49 Pulse Ox 99 07/05/19 16:49 Vital Signs Reviewed: Yes Skin: Positive: Significant Lesion(s) - L forearm w/ 6 stitches Course/Dx - Course Course Of Treatment: 6 STITCHES REMOVED at L forearm w/ no complications but they were slightly imbedded. ADvised to cont. using topical antibx and if worsening ok to use his po antbx. vitals good. No purulent material. - Differential Dx - Laceration/Wound Differential Diagnoses: Healing Wound, Suture Removal, Other - Diagnosis Provider Diagnosis: Visit for suture removal Discharge ED - Sign-Out/Discharge Documenting (check all that apply): Patient Departure All imaging exams completed and their final reports reviewed: No Studies - Discharge Plan Condition: Good Disposition: HOME Patient Education Materials: Stitches Removal (ED) Referrals: No Primary Care Phys,NOPCP [Primary Care Provider] - Additional Instructions: cONTINUE TO USE THE TOPICAL ANTIBIOTIC. - Billing Disposition and Condition Condition: GOOD Disposition: Home - Attestation Statements Provider Attestation: I was available for consult. This patient was seen by the [facility]. The patient was not presented to, seen by, or examined by me. -Yon
== END 2019-07-05 17:12 | disposition home or self-care (01) ==
LOC: UCEAST 16:43
DX: S51.812D Laceration without foreign body of left forearm, subsequent encounter (principal); X58.XXXD Exposure to other specified factors, subsequent encounter

== ENCOUNTER 2019-12-05 16:18 | Emergency (ER) | payer OTHER ==
[2019-12-05] MEDS ORDERED: Tetan/Diph/Pertus SYR(Tdap)* 0.5 ML SYR(BOOSTRIX) use SYR contains LATEX IM ONE (16:31)
--- NOTE | 2019-12-05 16:34 | UC ---
Hand/Wrist HPI - HPI Summary HPI Summary: 24 yo male presents with cat bite. He tells me that he was playing with his mother's cat around 1230 today and "grabbed the cat wrong" and the cat "freaked out" and bit pt on his right index finger twice. He washed the area with hydrogen peroxide. Since that time has had pain and swelling. He is right handed. Unsure date of last tetanus. Cat is UTD on immunizations. - History Of Current Complaint Stated Complaint: CAT BITE Time Seen by Provider: 12/05/19 16:23 Hx Obtained From: Patient Onset/Duration: Sudden Onset Severity Initially: Severe Severity Currently: Severe Pain Intensity: 9 Pain Scale Used: 0-10 Numeric - Allergies/Home Medications Allergies/Adverse Reactions: Allergies Allergy/AdvReac Type Severity Reaction Status Date / Time chlorine Allergy Hives Uncoded 12/05/19 16:34 PMH/Surg Hx/FS Hx/Imm Hx - Additional Past Medical History Additional PMH: None - Surgical History Surgical History: None - Family History Known Family History: Positive: Hypertension, Non-Contributory - Social History Lives: With Family Alcohol Use: Rare Substance Use Type: None Smoking Status (MU): Never Smoked Tobacco Type: Smokeless Tobacco Review of Systems All Other Systems Reviewed And Are Negative: No Constitutional: Positive: Negative Skin: Positive: Other - Cat bite right index finger Respiratory: Positive: Negative Cardiovascular: Positive: Negative Neurovascular: Positive: Negative Neurological/Mental Status: Positive: Negative Psychological: Positive: Negative Physical Exam - Summary Physical Exam Summary: GENERAL: NAD. WDWN. No pain distress. SKIN: RIGHT INDEX FINGER: Four 2mm puncture wounds to dorsal proximal phalanx with moderate edema NECK: Supple. Nontender. No lymphadenopathy. CHEST: No accessory muscle use. Breathing comfortably and in no distress. CV: Pulses intact. Cap refill <2seconds MSK: TTP about entire right index finger. FROM at DIP. Pain with movement of PIP and MCP. NEURO: Alert. PSYCH: Age appropriate behavior. Triage Information Reviewed: Yes Vital Signs: Vital Signs: Temp Pulse Resp BP Pulse Ox 98.8 F 77 18 143/81 98 12/05/19 16:31 12/05/19 16:31 12/05/19 16:31 12/05/19 16:31 12/05/19 16:31 Amoxicillin/Clavulanate TAB* [Augmentin TAB 875*] 875 mg PO BID #20 tab [Rx] Vital Signs Reviewed: Yes Hand/Wrist Course/Dx - Course Course Of Treatment: Cat bite right index finger. tdap updated today. Irrigated with saline. Start augmentin. Strongly advised to monitor closely for streaking, drainage, increased pain, or inability to bend finger. High risk area of need of wash-out if does not improve. - Differential Dx/Diagnosis Provider Diagnosis: Cat bite of finger Discharge ED - Sign-Out/Discharge Documenting (check all that apply): Patient Departure All imaging exams completed and their final reports reviewed: No Studies - Discharge Plan Condition: Stable Disposition: HOME Prescriptions: Amoxicillin/Clavulanate TAB* [Augmentin TAB 875*] 875 mg PO BID #20 tab Patient Education Materials: Animal Bite (ED) Referrals: No Primary Care Phys,NOPCP [Primary Care Provider] - Additional Instructions: Rest, Ice, and elevate your finger to reduce pain and swelling. Take the antibiotic as prescribed. If you notice fever, spreading redness, drainage, increased pain, or inability to move your finger --- please go to the ER immediately - Billing Disposition and Condition Condition: STABLE Disposition: Home
[2019-12-05 16:41] VITALS: BP 143/81
== END 2019-12-05 17:15 | disposition home or self-care (01) ==
LOC: UCEAST 16:18
DX: S61.250A Open bite of right index finger without damage to nail, initial encounter (principal); Z91.09 Other allergy status, other than to drugs and biological substances; W55.01XA Bitten by cat, initial encounter; Y92.9 Unspecified place or not applicable
CPT/HCPCS: 90471; 90715; 99212; G0463

== ENCOUNTER 2019-12-06 21:44 | Emergency (ER) | payer OTHER ==
[2019-12-06] MEDS ORDERED: NS 0.9% 1000 ML** 1,000 ML IV.FLUID IV ONE (22:37)
[2019-12-06] MEDS ORDERED: Piperacillin/Tazobac ADVAN(*) 3.375 GM in NS 0.9% 100 ML* 100 ML IVPB ONE (22:38)
[2019-12-06] MEDS ORDERED: Zosyn per Pharmacy* NOTE FOLLOW UP SCH (23:00)
[2019-12-06 23:01] LABS: ABS Eosinophils 0.2 10^3/ul (0-0.6); ABS Lymphocytes 2.5 10^3/ul (1.0-4.8); ABS Monocytes 0.6 10^3/ul (0-0.8); ABS Neutrophils 3.1 10^3/ul (1.5-7.7); Eosinophil % 2.7 %; Hematocrit 45 % (42-52); Lymphocyte % 38.4 %; Mean Corpuscular HGB Conc 36 g/dL (31-36); Mean Corpuscular Hemoglobin 33 pg (27-31); Mean Corpuscular Volume 91 fL (80-94); Mean Platelet Volume 8.7 fL (7.4-10.4); Nucleated Red Blood Cells % 0.1; Platelet Count 226 10^3/uL (150-450); Red Cell Distribution Width 13 % (10-15); White Blood Count 6.4 10^3/uL (3.5-10.8)
--- NOTE | 2019-12-06 23:01 | ED ---
Bite Injury/Animal - HPI Summary HPI Summary: 24 year old male presents with multiple cat bites to right index finger yesterday. He states that he has been using hebicleanse and apply topical antibiotic to bites. Has been taking Augmentin. Nose that the redness spread a little bit today on the dorsum of his hand. He still has range of motion at the DIP and PIP but is limited at the MCP. He states the area is very swollen. Denies any fevers or chills. He has no medical conditions. Tetanus up-to- date. - History of Current Complaint Chief Complaint: EDAnimalBite Stated Complaint: CAT BITE RT HAND PER PT Time Seen by Provider: 12/06/19 22:31 Pain Intensity: 2 - Allergies/Home Medications Allergies/Adverse Reactions: Allergies Allergy/AdvReac Type Severity Reaction Status Date / Time chlorine Allergy Hives Uncoded 12/06/19 22:27 PMH/Surg Hx/FS Hx/Imm Hx Endocrine/Hematology History: Denies: Hx Diabetes Respiratory History: Denies: Hx Asthma, Hx Chronic Obstructive Pulmonary Disease (COPD) - Immunization History Immunizations Up to Date: Yes Infectious Disease History: No Infectious Disease History: Denies: Traveled Outside the [place] in Last 30 Days - Family History Known Family History: Positive: Hypertension, Non-Contributory - Social History Alcohol Use: Rare Substance Use Type: Reports: None Smoking Status (MU): Never Smoked Tobacco Type: Smokeless Tobacco Review of Systems Negative: Fever Negative: Chest Pain Negative: Shortness Of Breath Positive: Rash All Other Systems Reviewed And Are Negative: Yes Physical Exam Triage Information Reviewed: Yes Vital Signs On Initial Exam: Initial Vitals Temp Pulse Resp BP Pulse Ox 99.0 F 91 18 137/71 97 12/06/19 21:50 12/06/19 21:50 12/06/19 21:50 12/06/19 21:50 12/06/19 21:50 Vital Signs Reviewed: Yes Appearance: Positive: Well-Appearing Skin: Positive: Warm, Dry Head/Face: Positive: Normal Head/Face Inspection Eyes: Positive: Normal, Conjunctiva Clear ENT: Positive: Pharynx normal Respiratory/Lung Sounds: Positive: Clear to Auscultation, Breath Sounds Present Cardiovascular: Positive: Normal, RRR Musculoskeletal: Positive: Other - multiple cat bites to proximal phalanx of right index finger with edema noted to area, has some erythema over posterior aspect of right proximal phalanx that extends to posterior palm, no erythema along flexor tendon, able to flex finger at PIP and DIP, limited ROM at MCP right index Neurological: Positive: Normal Psychiatric: Positive: Normal Procedures - Sedation Patient Received Moderate/Deep Sedation with Procedure: No Diagnostics - Vital Signs Vital Signs Temp Pulse Resp BP Pulse Ox 12/06/19 21:50 99.0 F 91 18 137/71 97 - Laboratory Result Diagrams: 12/06/19 22:48 12/06/19 22:48 Lab Statement: Any lab studies that have been ordered have been reviewed, and results considered in the medical decision making process. Bite Injury Course/Dx - Course Course Of Treatment: 24 year old male presents with multiple cat bites to right index finger yesterday. He states that he has been using hebicleanse and apply topical antibiotic to bites. Has been taking Augmentin. Nose that the redness spread a little bit today on the dorsum of his hand. He still has range of motion at the DIP and PIP but is limited at the MCP. He states the area is very swollen. Denies any fevers or chills. He has no medical conditions. Tetanus up-to-date. On exam has multiple bites to proximal phalanx of the right index finger. Has edema noted to the proximal phalanx. Some erythema on the dorsum of the hand extending half way up the 2nd metacarpel. Nontender and no erythema noted along the flexor tendon. No signs of flexor tenosynovitis. wbc normal. Gave dose Zosyn. will continue outpatient treatment as only little more swollen that yesterday, has no fever or wbc. told if develop worsening swelling to returned. warned signs of flexor tenosynovitis to return for. Patient understands and agrees with plan. - Diagnoses Differential Diagnosis/HQI/PQRI: Positive: Cellulitis, Superficial Infection, Deep Space Infection Provider Diagnosis: Cat bite, Cellulitis Discharge ED - Sign-Out/Discharge Documenting (check all that apply): Patient Departure - Discharge Plan Condition: Good Disposition: HOME Patient Education Materials: Cellulitis (ED) Forms: *Work Release Referrals: [facility] [Outside] Additional Instructions: take antibiotic twice a day for 10 days continue soaks of area and apply antibiotic topical ice, elevate take ibuprofen every 6 hours for pain Follow up with [facility] within 3 days Return to ED if develop fever, redness spreads or any new or worsening symptoms - Billing Disposition and Condition Condition: GOOD Disposition: Home
[2019-12-06 23:08] LABS: Albumin 4.7 g/dL (3.2-5.2); Calcium 9.4 mg/dL (8.6-10.3); Potassium 3.8 mmol/L (3.5-5.0); Total Bilirubin 1.7 mg/dL (0.2-1.0)
[2019-12-06 23:14] LABS: Albumin/Globulin Ratio 1.9 (1-3); BUN/Creatinine Ratio 14.4 (8-20); C Reactive Protein 14.39 mg/L (<8.01); EGFR African American 96.9 (>60); EGFR Non-African American 80.1 (>60); Globulin 2.5 g/dL (2-4); Total Protein 7.2 g/dL (6.4-8.9)
[2019-12-07 00:01] VITALS: BP 125/51
== END 2019-12-06 23:50 | disposition home or self-care (01) ==
LOC: ED 21:44
DX: S61.250A Open bite of right index finger without damage to nail, initial encounter (principal); L03.011 Cellulitis of right finger; W55.01XA Bitten by cat, initial encounter; Y92.9 Unspecified place or not applicable
CPT/HCPCS: 36415; 80053; 83605; 85025; 86140; 87040; 96365; 99283; J2543